=== PATIENT | male | born 1990 | race Hispanic/Latino ===

== ENCOUNTER 2025-01-21 04:40 | Emergency (ER) | payer OTHER ==
[2025-01-21] MEDS ORDERED: NA CHLORIDE 0.9% 1,000 ML ONE (05:08)
[2025-01-21 05:21] LABS: Absolute Basophils 0.1 K/uL (0-0.5); Absolute Eosinophils 0.1 K/uL (0-0.5); Absolute Lymphocytes (CBC) 3.3 K/uL (0.7-4.9); Absolute Monocytes 0.5 K/uL (0.1-1.3); Absolute Neutrophil 3.8 K/uL (1.8-8.0); Basophils % 0.9 % (0-1.3); Eosinophils % 1.2 % (0-4.4); Hematocrit 42.7 % (39.6-49.0); Hemoglobin 14.9 g/dL (13.6-17.9); Lymphocytes % 42.5 % (15.3-44.8); MCH 31.2 pg (27.0-35.0); MCV 89.2 fL (80-100); MPV 7.5 fL (7.6-11.3); Monocytes % 6.7 % (3.3-12.3); Neutrophils % 48.7 % (41.7-73.7); Nucleated Red Blood Cells % 0.1 % (0-0); Platelets 321 thou/uL (152-406); RBC Red Blood Cell Count 4.78 M/uL (4.33-5.43); Red Cell Distribution Width 13.3 % (12.1-15.2)
[2025-01-21 05:33] LABS: Albumin 3.5 g/dL (3.4-5.0); Albumin/Globulin Ratio 1.1 (1.1-1.8); Anion Gap 8.5 mEq/L (5.0-15.0); Bilirubin Total 0.9 mg/dL (0.2-1.0); Globulin 3.3 g/dL (2.3-3.5); Potassium 3.5 mEq/L (3.5-5.1); Protein, Total 6.8 g/dL (6.4-8.2)
--- NOTE | 2025-01-21 06:31 | RAD REPORT ---
EXAMINATION: Abdomen Pelvis W Contrast CLINICAL INDICATION: Male, 34 years old.ABD PAIN TECHNIQUE: CT abdomen and pelvis was performed, after the administration of IV contrast, as per [facility] protocol. Axial, sagittal and coronal reconstructions were obtained. One or more of the following dose reduction techniques were used: Automated exposure control, adjustment of the mA and/o r kV according to patient size, and/or iterative reconstruction. Unless otherwise specified, incidental findings do not require dedicated imaging follow-up. [id number]. COMPARISON: No prior exam. FINDINGS: LOWER CHEST: No acute process identified.No significant pericardial effusion. UPPER GI: No significant abnormality. LIVER: No significant focal abnormality. GALLBLADDER/BILE DUCTS: Cholelithiasis without CT evidence of acute cholecystitis.? PANCREAS: No mass, ductal dilation, or cookie-pancreatic fluid. SPLEEN: Unremarkable. ADRENALS: No adrenal masses. KIDNEYS AND URETERS: No hydronephrosis.No suspicious renal mass. ABDOMINAL AORTA AND OTHER VESSELS: Normal caliber aorta and IVC. PERITONEUM: No abnormal free fluid. No free air. LYMPH NODES: No pathologic lymphadenopathy. ABDOMINAL WALL: Fat containing inguinal hernias. SMALL BOWEL/COLON: Small bowel has normal course and caliber. No colonic wall thickening or pericolon ic inflammatory changes.Normal appendix. URINARY BLADDER: Underdistended but grossly unremarkable. REPRODUCTIVE ORGANS: No pathologic process. MUSCULOSKELETAL: No acute or suspicious osseous abnormality. ADDITIONAL FINDINGS: None. IMPRESSION: No acute findings within the abdomen or pelvis. Cholelithiasis without CT evidence of acute cholecyst itis. Normal appendix.
--- NOTE | 2025-01-21 06:37 | ER ---
Nurse's Notes [facility] Name: Kingsley Calderon Jr Age: 34 yrs Sex: Male : 1990 Arrival Date: 01/21/2025 Time: 04:40 Bed 6 Private MD: Diagnosis: Biliary colic, abdominal pain Presentation: 01/21 04:54 Chief complaint: Patient states: EPIGASTRIC PAIN THAT WOKE HIM UP AT APPROX 0330. PT br2 DENIES N/V/D/F. Coronavirus screen: Client denies travel out of the [place] in the last 14 days. Ebola Screen: Patient denies exposure to infectious person. Initial Sepsis Screen: Does the patient meet any 2 criteria? No. Patient's initial sepsis screen is negative. Does the patient have a suspected source of infection? No. Patient's initial sepsis screen is negative. Risk Assessment: Do you want to hurt yourself or someone else?. Onset of symptoms was January 21, 2025 at 03:30. 04:54 Method Of Arrival: Ambulatory br2 04:54 Acuity: KARSTEN 3 br2 Triage Assessment: 04:56 General: Appears in no apparent distress. comfortable, Behavior is calm, cooperative. br2 Pain: Complains of pain in epigastric area, right upper quadrant and left upper quadrant Pain does not radiate. Pain currently is 6 out of 10 on a pain scale. GI: Reports upper abdominal pain, epigastric pain. Historical: - Allergies: 04:56 No Known Allergies; br2 - Immunization history:: Adult Immunizations not up to date. - Infectious Disease History:: Denies. - Social history:: Smoking status: Patient denies any tobacco usage or history of. Patient/guardian denies using alcohol, street drugs. Screenin:05 [facility] ED Fall Risk Assessment (Adult) History of falling in the last 3 months, cp4 including since admission No falls in past 3 months (0 pts) Confusion or Disorientation No (0 pts) Intoxicated or Sedated No (0 pts) Impaired Gait No (0 pts) Mobility Assist Device Used No (0 pt) Altered Elimination No (0 pt) Score/Fall Risk Level 0 - 2 = Low Risk Oriented to surroundings, Maintained a safe environment, Assessed \T\ reinforced patient's understanding of fall precautions, Hourly rounding (assess needs \T\ fall precautionary measures) done. Abuse screen: Denies threats or abuse. Denies injuries from another. Nutritional screening: No deficits noted. Tuberculosis screening: No symptoms or risk factors identified. Assessment: 05:05 General: Appears in no apparent distress. comfortable, Behavior is calm, cooperative, cp4 appropriate for age. Pain: Complains of pain in epigastric area Pain does not radiate. Pain currently is 6 out of 10 on a pain scale. Neuro: Level of Consciousness is awake, alert, obeys commands, Oriented to person, place, time, situation. Cardiovascular: Patient's skin is warm and dry. Respiratory: Airway is patent Respiratory effort is even, unlabored. GI: Abdomen is round non-distended, Bowel sounds present X 4 quads. Abd is soft and non tender X 4 quads. : No signs and/or symptoms were reported regarding the genitourinary system. EENT: No signs and/or symptoms were reported regarding the EENT system. Derm: No signs and/or symptoms reported regarding the dermatologic system. Musculoskeletal: No signs and/or symptoms reported regarding the musculoskeletal system. Vital Signs: 04:54 BP 125 / 81; Pulse 72; Resp 18 S; Temp 97.1(TE); Pulse Ox 99% on R/A; Weight 106.59 kg; br2 Height 5 ft. 8 in. ; Pain 6/10; 06:50 BP 113 / 81; Pulse 70; Resp 18; Pulse Ox 100% ; cp4 04:54 Body Mass Index 35.73 (106.59 kg, 172.72 cm) br2 04:54 Pain Scale: Adult br2 ED Course: 04:44 Patient arrived in ED. jj6 04:55 Triage completed. br2 04:56 Arm band placed on. br2 05:03 Dung Bullard MD is Attending Physician. sp3 05:05 Jacklyn Waldrop is Primary Nurse. cp4 05:05 Bed in low position. Call light in reach. Side rails up X 1. cp4 05:05 No provider procedures requiring assistance completed. Inserted saline lock: 20 gauge cp4 in right antecubital area, using aseptic technique. Blood collected. Flushed with 10 mL NS. 06:05 CT Abd/Pelvis - IV Contrast Only In Process Unspecified. EDMS 06:50 Provided Education on: biliary colic. cp4 06:51 intact, bleeding controlled, No redness/swelling at site. Pressure dressing applied. cp4 Administered Medications: 05:07 Drug: NS 0.9% IV 1000 ml IV at 1 bolus Per protocol; to be given as a bolus over 60 cp4 minutes Route: IV; Rate: 1 bolus; Site: right antecubital; 06:52 Follow up: IV Status: Completed infusion cp4 Medication: 05:05 VIS not applicable for this client. cp4 Outcome: 06:36 Discharge ordered by . sp3 06:51 Discharged to home ambulatory, cp4 06:51 Condition: stable 06:51 Discharge instructions given to patient, family, Instructed on discharge instructions, follow up and referral plans. medication usage, Demonstrated understanding of instructions, follow-up care, medications, Prescriptions given X 1, 06:52 Patient left the ED. cp4 Signatures: Dispatcher [employer] EDMS Dung Bullard MD MD sp3 Alisha Magallon Christina cp4 Madai Kathleen RN RN br2
--- NOTE | 2025-01-21 06:37 | EDPHYS ---
Physician Documentation [facility] Name: Kingsley Calderon Jr Age: 34 yrs Sex: Male : 1990 Arrival Date: 01/21/2025 Time: 04:40 Bed 6 Private MD: ED Physician Dung Bullard HPI: 01/21 05:24 This 34 yrs old Male presents to ER via Ambulatory with complaints of sp3 Abdominal Pain, Abdominal Cramping, Chest Pain. 05:24 34-year-old male with no past medical history presents with epigastric pain that woke sp3 him up at 3:30 AM which brought him to the ED, which has now resolved between triage and my visit. Patient states that the pain was sharp in nature and radiated to the right upper quadrant. He denies any lower abdominal pain, flank pain, dysuria, urinary frequency, chest pain, shortness of breath, fever, or any other signs or symptoms on ROS at this time. He has no past surgical history.. Historical: - Allergies: 04:56 No Known Allergies; br2 - Immunization history:: Adult Immunizations not up to date. - Infectious Disease History:: Denies. - Social history:: Smoking status: Patient denies any tobacco usage or history of. Patient/guardian denies using alcohol, street drugs. ROS: 05:27 Constitutional: Negative for fever, chills, and weight loss, Eyes: Negative for injury, sp3 pain, redness, and discharge, Neck: Negative for injury, pain, and swelling, Cardiovascular: Negative for chest pain, palpitations, and edema, Respiratory: Negative for shortness of breath, cough, wheezing, and pleuritic chest pain, Back: Negative for injury and pain, : Negative for injury, bleeding, discharge, and swelling, MS/Extremity: Negative for injury and deformity, Skin: Negative for injury, rash, and discoloration, Neuro: Negative for headache, weakness, numbness, tingling, and seizure, Psych: Negative for depression, anxiety, suicide ideation, homicidal ideation, and hallucinations, Allergy/Immunology: Negative for hives, rash, and allergies, Endocrine: Negative for neck swelling, polydipsia, polyuria, polyphagia, and marked weight changes, Hematologic/Lymphatic: Negative for swollen nodes, abnormal bleeding, and unusual bruising, 05:27 All other systems are negative, Exam: 05:28 Constitutional: This is a well developed, well nourished patient who is awake, alert, sp3 and in no acute distress. Head/Face: Normocephalic, atraumatic. Eyes: Pupils equal round and reactive to light, extra-ocular motions intact. Lids and lashes normal. Conjunctiva and sclera are non-icteric and not injected. Cornea within normal limits. Periorbital areas with no swelling, redness, or edema. Neck: Trachea midline, no thyromegaly or masses palpated, and no cervical lymphadenopathy. Supple, full range of motion without nuchal rigidity, or vertebral point tenderness. No Meningismus. Chest/axilla: Normal chest wall appearance and motion. Nontender with no deformity. No lesions are appreciated. Cardiovascular: Regular rate and rhythm with a normal S1 and S2. No gallops, murmurs, or rubs. Normal PMI, no JVD. No pulse deficits. Respiratory: Lungs have equal breath sounds bilaterally, clear to auscultation and percussion. No rales, rhonchi or wheezes noted. No increased work of breathing, no retractions or nasal flaring. Abdomen/GI: Soft, non-tender, with normal bowel sounds. No distension or tympany. No guarding or rebound. No evidence of tenderness throughout. Back: No spinal tenderness. No costovertebral tenderness. Full range of motion. Skin: Warm, dry with normal turgor. Normal color with no rashes, no lesions, and no evidence of cellulitis. MS/ Extremity: Pulses equal, no cyanosis. Neurovascular intact. Full, normal range of motion. Neuro: Awake and alert, GCS 15, oriented to person, place, time, and situation. Cranial nerves II-XII grossly intact. Motor strength 5/5 in all extremities. Sensory grossly intact. Cerebellar exam normal. Normal gait. Psych: Awake, alert, with orientation to person, place and time. Behavior, mood, and affect are within normal limits. Vital Signs: 04:54 BP 125 / 81; Pulse 72; Resp 18 S; Temp 97.1(TE); Pulse Ox 99% on R/A; Weight 106.59 kg; br2 Height 5 ft. 8 in. ; Pain 6/10; 06:50 BP 113 / 81; Pulse 70; Resp 18; Pulse Ox 100% ; cp4 04:54 Body Mass Index 35.73 (106.59 kg, 172.72 cm) br2 04:54 Pain Scale: Adult br2 MDM: 05:07 Medical Screening Exam initiated sp3 05:28 Data reviewed: vital signs, nurses notes, lab test result(s), radiologic studies. ED sp3 course: 34-year-old male with a now resolved epigastric abdominal pain. Differential diagnosis includes gastritis, peptic ulcer disease, biliary colic, cholecystitis, cholangitis, colitis, functional abdominal pain, constipation, among others. Patient still like to stay and get his workup completed. Workup will include CT scan of the abdomen pelvis with IV contrast, general labs, UA and general supportive care. No medications indicated at this time. If workup negative we will safely discharge patient home.. 06:35 ED course: Patient has cholelithiasis without cholecystitis. Normal labs. I believe his sp3 pain was likely due to biliary colic. We will refer him to general surgery for follow-up.. 01/21 04:57 Order name: CBC with Diff; Complete Time: 06:35 br2 01/21 04:57 Order name: CMP; Complete Time: 06:35 br2 01/21 04:57 Order name: Lipase; Complete Time: 06:35 br2 01/21 05:04 Order name: CT Abd/Pelvis - IV Contrast Only; Complete Time: 06:35 sp3 01/21 04:57 Order name: IV Saline Lock; Complete Time: 05:07 br2 01/21 04:57 Order name: Labs collected and sent; Complete Time: 05:07 br2 01/21 05:04 Order name: IV Saline Lock; Complete Time: 05:07 sp3 Administered Medications: 05:07 Drug: NS 0.9% IV 1000 ml IV at 1 bolus Per protocol; to be given as a bolus over 60 cp4 minutes Route: IV; Rate: 1 bolus; Site: right antecubital; 06:52 Follow up: IV Status: Completed infusion cp4 Disposition Summary: 01/21/25 06:36 Discharge Ordered Notes: Location: Home sp3 Condition: Stable sp3 Diagnosis - Biliary colic, abdominal pain sp3 Followup: sp3 - With: Private Physician - When: Upon discharge from the Emergency Department - Reason: Recheck today's complaints Discharge Instructions: - Discharge Summary Sheet sp3 - Biliary Colic, Adult sp3 Forms: - Medication Reconciliation Form sp3 - Antibiotic Education sp3 - Prescription Opioid Use sp3 - Patient Portal Instructions sp3 - Leadership Thank You Letter sp3 Prescriptions: - Tramadol 50 mg Oral Tablet - take 1 tablet ORAL route every 8 hours as needed; 12 tablet; Refills: 0, sp3 Product Selection Permitted Signatures: Dispatcher [employer] EDMS Dung Bullard MD MD sp3 Jacklyn Waldrop cp4 Madai Kathleen RN RN br2 Corrections: (The following items were deleted from the chart) 05:04 05:04 Abdomen Pelvis W Con+CT.RAD.BRZ ordered. EDMS EDMS
[2025-01-21 07:00] VITALS: TEMP 97.1
[2025-01-21 07:02] VITALS: BP 113/81; O2SAT 100
== END 2025-01-21 06:52 | disposition home or self-care (01) ==
LOC: ER 04:40
DX: K80.50 Calculus of bile duct without cholangitis or cholecystitis without obstruction (principal)
CPT/HCPCS: 96361; 85025; 36415; 83690; 80053; 74177; 96360; 99284; Q9967; J7030

== ENCOUNTER 2025-02-01 07:24 | Day surgery (SDC) | payer OTHER ==
--- NOTE | 2025-01-31 10:03 | RAD REPORT ---
Procedure: Chest Pa And Lat (2 Views) HISTORY: Preop for cholecystectomy. COMPARISON: none FINDINGS: The lungs appear clear of acute infiltrate. No significant pleural effusion noted. The heart is normal size. IMPRESSION: No acute abnormality is displayed.
[2025-01-31 12:45] LABS: RBC Red Blood Cell Count 5.36 M/uL (4.33-5.43)
[2025-01-31 12:46] LABS: Absolute Eosinophils 0.1 K/uL (0-0.5); Absolute Lymphocytes (CBC) 1.9 K/uL (0.7-4.9); Absolute Monocytes 0.4 K/uL (0.1-1.3); Absolute Neutrophil 5.2 K/uL (1.8-8.0); Basophils % 0.6 % (0-1.3); Eosinophils % 0.9 % (0-4.4); Hematocrit 48.3 % (39.6-49.0); Hemoglobin 16.6 g/dL (13.6-17.9); Lymphocytes % 25.3 % (15.3-44.8); MCHC 34.5 g/dL (32.0-36.0); Monocytes % 5.4 % (3.3-12.3); Neutrophils % 67.8 % (41.7-73.7); Nucleated Red Blood Cells % 0.1 % (0-0); Platelets 294 thou/uL (152-406)
[2025-01-31 13:10] LABS: Albumin 4.2 g/dL (3.4-5.0); Albumin/Globulin Ratio 1.1 (1.1-1.8); Anion Gap 8.8 mEq/L (5.0-15.0); Bilirubin Direct 0.3 mg/dL (0-0.2); Bilirubin Indirect, Calculated 1.7 mg/dL (0.2-0.8); Globulin 3.9 g/dL (2.3-3.5); Potassium 3.8 mEq/L (3.5-5.1); Protein, Total 8.1 g/dL (6.4-8.2)
[2025-02-01] MEDS: Ringers Lactate 1,000 ML IV ONE (08:16)
[2025-02-01] MEDS: CEFOXITIN SODIUM 1 GM/VIAL ONE (10:59)
--- NOTE | 2025-02-01 11:21 | RAD REPORT ---
EXAMINATION: MR CHOLANGIOGRAM CLINICAL INDICATION: Male, 34 years old. PRE-OP, ELEVATED BILIRUBIN TECHNIQUE: Multiplanar, multisequence MR imaging of the abdomen without intravenous contrast, and wit h specific attention to the biliary system. Unless otherwise specified, incidental findings do not require dedicated imaging follow-up. 3D MIP reconstruction performed. COMPARISON: No prior exam. FINDINGS: GALLBLADDER: Cholelithiasis is present. By MRI, no evidence of gallbladder wall thickening or pericho lecystic fluid. BILE DUCTS: No biliary ductal dilatation. The common bile duct measures 3 mm and is normal in caliber . The cystic duct is normal in caliber. LIVER: Normal in size, contour, and signal without evidence of fatty infiltration or iron deposition. No focal lesion. PANCREAS: Normal signal. No mass, ductal dilation, or cookie-pancreatic fluid. LYMPH NODES: No lymphadenopathy. ADDITIONAL FINDINGS: None. IMPRESSION: Cholelithiasis. No biliary duct dilatation. No evidence of choledocholithiasis or stricture.
[2025-02-01] MEDS ORDERED: propofoL 200 MG/20 ML VIAL IV ONE (11:28)
[2025-02-01] MEDS ORDERED: ONDANSETRON 4 MG/2 ML VIAL ONE (11:28)
[2025-02-01] MEDS ORDERED: MIDAZOLAM HCL 2 MG/2 ML INJ ONE (11:28)
[2025-02-01] MEDS ORDERED: ROCURONIUM 50 MG/5 ML VIAL IV ONE (11:28)
[2025-02-01] MEDS ORDERED: LIDOCAINE 1% MPF 5 ML VIAL ONE (11:28)
[2025-02-01] MEDS ORDERED: FENTANYL CITR 100 MCG/2 ML ONE (11:28)
[2025-02-01] MEDS ORDERED: NEOSTIGMINE 1 MG/ML -10 ML VIAL ONE (12:18)
[2025-02-01] MEDS ORDERED: GLYCOPYRROLATE 0.2 MG/ML SYR ONE (12:18)
[2025-02-01] MEDS ORDERED: Mastisol Adhesive Liq ONE (12:20)
--- NOTE | 2025-02-01 12:21 | EKG ---
Test Date: 2025-01-31 Test Time: 09:37:36 Optomechanical Technician: LINA MEASUREMENT RESULTS: Intervals: Rate: 53 TX: 166 QRSD: 98 QT: 412 QTc: 386 Newsoms: P: 27 TX: 166 QRS: 10 T: 1 INTERPRETIVE STATEMENTS: Sinus bradycardia T wave abnormality, consider inferior ischemia Abnormal ECG No previous ECG available for comparison Electronically Signed On 02-01-25 12:20:05 CDT by Abad Ching
--- NOTE | 2025-02-01 12:32 | P.BOP ---
Preoperative diagnosis: acute cholecystitis, symptomatic cholelithiasis, s/p MRCP Postoperative diagnosis: same Primary procedure: Laparoscopic cholecystectomy Control Officer: Surekha Hdez) Estimated blood loss: <10cc Specimen: gb Findings: as above Anesthesia: General Complications: None Transferred to: Recovery Room Condition: Good
[2025-02-01] MEDS: KETOROLAC 30 MG/ML INJ ONE (12:57)
[2025-02-01] MEDS: HYDROMORPHONE HCL 1 MG/ML INJ ONE ×2 (12:57→13:08)
[2025-02-01 14:06] VITALS: BP 121/76; TEMP 97; O2SAT 100
--- NOTE | 2025-02-01 14:18 | DS ---
Diagnosis: Acute cholecystitis, symptomatic cholelithiasis. Procedure: Laparoscopic cholecystectomy. Condition: Stable. Disposition: Home. Activity: As tolerated. No heavy lifting. Discharge Instructions: Follow up in my office in 1 week. Call for appointment at [phone]. Keep a ethel dry for 48 hours, then may shower. Keep Steri-Strip intact. REUBEN/JESSE Voice ID: [id number] Report ID: [id number]
--- NOTE | 2025-02-01 14:18 | OP ---
Date of Procedure: 02/01/2025 Surgeon: Isac Keith MD Vending Manager: MADHAV Alvarado Preoperative Diagnoses: Acute cholecystitis, symptomatic cholelithiasis, status post MRCP. Postoperative Diagnoses: Acute cholecystitis, symptomatic cholelithiasis, status post MRCP. Procedure: Laparoscopic cholecystectomy. Estimated Blood Loss: Less than 10 cc. Specimen: Gallbladder. Anesthesia: General plus local. Complications: None. Indications: This is a case of a 34-year-old patient, who came to us with above diagnoses. This mor wendy, we noticed bilirubin to be slightly elevated. MRCP was ordered and it came back negative with no stones in the common bile duct. We proceed with laparoscopic, possible open cholecystectomy with benefits, alternatives, and risks explained which include, but not limited to, infection, bleeding, d amage to adjacent structures, anesthesia complication, choledocholithiasis, bile leak, pancreatitis, WA, and even . He also understands this may not relieve any symptoms, he might need more than o ne surgical intervention. He understood, signed a consent. Description Of Procedure: Patient was brought to the operating room, placed in supine position. Ane sthesia was induced without complication. Abdominal area was prepped and draped in a sterile fashion . Marcaine 0.5% was injected for local anesthetic, followed by sharp incision of skin in the infraum bilical region. Incision was carried down to fascia, which was opened under direct vision. Peritone um was encountered, opened under direct vision. Vicryl #1 placed inside the fascia. Rosario trocar w as carefully introduced. Pneumoperitoneum was obtained. I placed 3 more trocars, 5 mm each one of t hem in the epigastric, upper quadrant area under direct visualization. This allowed me to put a gras per in the fundus of the gallbladder, another grasper in the infundibulum, retracting the gallbladder in the inferolateral fashion exposing the triangle of Calot, obtaining critical view. Cystic duct a nd cystic artery were clearly isolated and freed circumferentially, and a connection between those an d the gallbladder were clearly identified. I proceeded to ligate those by using at least 3 clips pro ximal, 1 clip distal, ligation in the middle. Same was done with the cystic artery. No bile leak. No bleeding. The gallbladder was removed from the liver using Bovie cauterizer and removed from the abdominal cavity using EndoCatch through the umbilical incision. The area was inspected once again. No bile leak. No bleeding. Clips were intact. Gallbladder fossa with no bleeding. At that momen t, I proceeded to remove the trocars under direct vision. Deflated the pneumoperitoneum. Closed the fascia with #1 Vicryl, irrigated subcutaneous tissue, closed that with 3-0 chromic and the skin in a subcuticular fashion with 3-0 chromic and Steri-Strips on top. Sponge counts and instrument were co unts correct. Patient tolerated the procedure well. Patient was sent to Recovery in stable conditio n. REUBEN/MODL Voice ID: [id number] Report ID: [id number]
== END 2025-02-01 15:00 | disposition home or self-care (01) ==
LOC: EDUNIT# 07:24 → OR 07:24
PROVIDERS: ATTEND Surgery
PROC: BF14YZZ Fluoroscopy of Gallbladder, Bile Ducts and Pancreatic Ducts using Other Contrast (ICD-10-PCS; 2025-02-01)
PROC: 0FT44ZZ Resection of Gallbladder, Percutaneous Endoscopic Approach (ICD-10-PCS; principal; 2025-02-01 09:55)
DX: K80.20 Calculus of gallbladder without cholecystitis without obstruction (principal)
CPT/HCPCS: 47562; 93005; 85025; 80048; 36415; 80076; 88304; 83690; 71046; 74181; J2704; J2710; J2003; J2250; J3010; J1171 ×2; J0694; J2405; J7120

== ENCOUNTER 2025-02-03 21:41 | Emergency (ER) | payer OTHER ==
--- NOTE | 2025-02-03 23:26 | EDPHYS ---
Physician Documentation [facility] Name: Kingsley Calderon Jr Age: 34 yrs Sex: Male : 1990 Arrival Date: 02/03/2025 Time: 21:41 Bed IW2 Private MD: ED Physician Herbie Walker HPI: 02/03 23:05 This 34 yrs old Male presents to ER via Ambulatory with complaints of post cp surgical drain 02/01/25. 23:05 Patient is a 34-year-old male who presents to the emergency department after noticing cp drainage from his surgical wound. Patient reports he had a cholecystectomy done [address] Keith. Noticed some bloody drainage from his umbilical incision and became concerned. Patient denies fever. Patient reports he is currently taking the prescribed antibiotic. Historical: - Allergies: 22:57 No Known Allergies; iw - Home Meds: 22:57 nebivolol oral daily [Active]; iw - PSHx: 22:57 Cholecystectomy; chest; iw - Immunization history:: Adult Immunizations. - Infectious Disease History:: Denies. - Social history:: Smoking status: Patient denies any tobacco usage or history of. ROS: 23:10 Constitutional: history per hpi cp 23:10 Constitutional: Negative for body aches, chills, fever, cp 23:10 Respiratory: Negative for cough, shortness of breath, wheezing, 23:10 Abdomen/GI: Negative for vomiting, diarrhea, constipation, 23:10 All other systems are negative, Exam: 23:15 Constitutional: The patient appears in no acute distress, alert, awake, non-toxic, well cp developed, well nourished, overweight 23:15 Head/Face: Normocephalic, atraumatic. cp 23:15 Chest/axilla: Inspection: normal, 23:15 Cardiovascular: Rate: normal, 23:15 Respiratory: the patient does not display signs of respiratory distress, Respirations: normal, no use of accessory muscles, no retractions, labored breathing, is not present, Breath sounds: are clear throughout, no decreased breath sounds, no stridor, no wheezing, 23:15 Abdomen/GI: Inspection: bruising, mild, obese Bowel sounds: active, all quadrants, Palpation: soft, in all quadrants, mild abdominal tenderness, in the umbilical area, mild bloody drainage noted on gauze, skin of abdomen appears w/o erythema, Vital Signs: 22:58 BP 116 / 84; Pulse 64; Resp 16; Temp 97.6; Pulse Ox 100% on R/A; Weight 102.06 kg; iw Height 5 ft. 8 in. ; Pain 4/10; 22:58 Body Mass Index 34.21 (102.06 kg, 172.72 cm) iw 22:58 Pain Scale: Adult iw MDM: 22:57 Medical Screening Exam initiated cp 23:25 Differential diagnosis: cellulitis, abscess, hematoma. cp 23:25 Data reviewed: vital signs, nurses notes, and as a result, I will discharge patient. cp Counseling: I had a detailed discussion with the patient and/or guardian regarding the historical points, exam findings, and any diagnostic results supporting the discharge/admit diagnosis, the need for outpatient follow up, a general surgeon, to return to the emergency department if symptoms worsen or persist or if there are any questions or concerns that arise at home. ED course: surgical dressing changed. 02/03 23:04 Order name: Dressing - Wound cp Administered Medications: No medications were administered Disposition Summary: 02/03/25 23:26 Discharge Ordered Notes: Location: Home cp Problem: new cp Symptoms: have improved cp Condition: Stable cp Diagnosis - Encounter for change or removal of surgical wound dressing cp Followup: cp - With: Isac Keith MD - When: 2 - 3 days - Reason: Wound Recheck Discharge Instructions: - Discharge Summary Sheet cp - Wound Care, Adult cp - Minimally Invasive Cholecystectomy, Care After cp Forms: - Medication Reconciliation Form cp - Antibiotic Education cp - Prescription Opioid Use cp - Patient Portal Instructions cp - Leadership Thank You Letter cp Addendum: 02/06/2025 17:41 I was immediately available on-site in the Emergency Department for consultation in the m s3 care of the patient. Signatures: Janel Guzman RN RN iw Dylan Chang PA PA cp Sims, Marcus, DO DO ms3
--- NOTE | 2025-02-03 23:26 | ER ---
Nurse's Notes [facility] [place] Name: Kingsley Calderon Jr Age: 34 yrs Sex: Male : 1990 Arrival Date: 02/03/2025 Time: 21:41 Bed IW2 Private MD: Diagnosis: Encounter for change or removal of surgical wound dressing Presentation: 02/03 22:55 Chief complaint: Patient states: had cholecystectomy 2 days ago , there has been some iw drainage at the site around belly button. Coronavirus screen: At this time, the client does not indicate any symptoms associated with coronavirus-19. Ebola Screen: No symptoms or risks identified at this time. Initial Sepsis Screen: Does the patient meet any 2 criteria? No. Patient's initial sepsis screen is negative. Does the patient have a suspected source of infection? No. Patient's initial sepsis screen is negative. Risk Assessment: Do you want to hurt yourself or someone else? Patient reports no desire to harm self or others. Onset of symptoms was February 03, 2025. 22:55 Method Of Arrival: Ambulatory iw 22:55 Acuity: KARSTEN 4 iw Triage Assessment: 02/04 00:35 General: Appears in no apparent distress. comfortable, Behavior is calm, cooperative. br2 Historical: - Allergies: 02/03 22:57 No Known Allergies; iw - Home Meds: 22:57 nebivolol oral daily [Active]; iw - PSHx: 22:57 Cholecystectomy; chest; iw - Immunization history:: Adult Immunizations. - Infectious Disease History:: Denies. - Social history:: Smoking status: Patient denies any tobacco usage or history of. Screenin/17 00:30 [facility] ED Fall Risk Assessment (Adult) History of falling in the last 3 months, br2 including since admission No falls in past 3 months (0 pts) Confusion or Disorientation No (0 pts) Intoxicated or Sedated No (0 pts) Impaired Gait No (0 pts) Mobility Assist Device Used No (0 pt) Altered Elimination No (0 pt) Score/Fall Risk Level 0 - 2 = Low Risk Oriented to surroundings. Abuse screen: Denies threats or abuse. Denies injuries from another. Nutritional screening: No deficits noted. Tuberculosis screening: No symptoms or risk factors identified. Assessment: 00:30 General: Appears in no apparent distress. comfortable, Behavior is calm, cooperative. br2 Pain: Denies pain. Derm: Skin is healthy with good turgor, Skin is moist, Skin is pink, warm \T\ dry. normal, Skin temperature is warm Wound noted umbilical area. 00:35 Reassessment: Patient and/or family updated on plan of care and expected duration. Pain br2 level reassessed. Patient is alert, oriented x 3, equal unlabored respirations, skin warm/dry/pink. Vital Signs: 02/03 22:58 BP 116 / 84; Pulse 64; Resp 16; Temp 97.6; Pulse Ox 100% on R/A; Weight 102.06 kg; iw Height 5 ft. 8 in. ; Pain 4/10; 22:58 Body Mass Index 34.21 (102.06 kg, 172.72 cm) iw 22:58 Pain Scale: Adult ED Course: 21:46 Patient arrived in ED. iw 22:00 Dylan Chang PA is PHCP. cp 22:00 Herbie Walker DO is Attending Physician. cp 22:56 Triage completed. iw 22:58 Arm band placed on. iw 23:25 Isac Keith MD is Referral Physician. cp 02/04 00:25 Wound care: to located on umbilical area was cleaned with with NORMAL SALINE, Patient br2 tolerated well. 00:30 Bed in low position. Call light in reach. Provided Education on: PLAN OF CARE. br2 00:30 Patient did not have IV access during this emergency room visit. br2 Administered Medications: No medications were administered Outcome: 02/03 23:26 Discharge ordered by . cp 02/04 00:35 Discharged to home ambulatory, br2 Condition: stable Discharge instructions given to patient, Instructed on discharge instructions, follow up and referral plans. Demonstrated understanding of instructions, follow-up care, 00:36 Patient left the ED. br2 Signatures: Janel Guzman RN RN Dylan Chang PA PA cp Madai Kathleen RN RN br2 Corrections: (The following items were deleted from the chart) 02/03 22:58 22:58 BP 116 / 84; Pulse 64bpm; Resp 16bpm; Pulse Ox 100% RA; Temp 97.6F; 102.06 kg; iw Height 5 ft. 8 in.; BMI: 34.2; iw
[2025-02-04 00:41] VITALS: BP 116/84; TEMP 97.6; O2SAT 100
== END 2025-02-04 00:36 | disposition home or self-care (01) ==
LOC: ER 21:41
DX: Z48.01 Encounter for change or removal of surgical wound dressing (principal); Z90.49 Acquired absence of other specified parts of digestive tract
CPT/HCPCS: 99283